=== PATIENT | female | born 1990 | race Caucasian/White ===

== ENCOUNTER 2018-08-25 21:40 | Emergency (ER) | payer BC, OTHER ==
[2018-08-25] MEDS ORDERED: MORPHINE SULFATE INJ 10 MG/ML VIAL IV ONE ×2 (22:18→23:30)
[2018-08-25] MEDS ORDERED: MORPHINE SULFATE INJ 10 MG/ML VIAL IM ONE (22:31)
[2018-08-25] MEDS ORDERED: ONDANSETRON ODT 8 MG TAB SL ONE (22:59)
[2018-08-25] MEDS ORDERED: SODIUM CHLORIDE 0.9% 1000ML 1,000 ML IVS ONE (23:49)
--- NOTE | 2018-08-26 00:09 | ED.PDOC ---
History of Present Illness - General Chief Complaint: Problem Stated Complaint: vaginal bleeding, abd pain Time Seen by Provider: 08/25/18 21:44 Source: patient Exam Limitations: no limitations - History of Present Illness Initial Comments: the patient is a 28-year-old female presenting to the emergency room secondary to vaginal bleeding. The patient started having some light bleeding yesterday but the bleeding became heavy later this afternoon. She started having more severe abdominal cramping as well. The patient had not actually had a period for the last 2-3 months. 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 She has not had a period since that time. She is not hypotensive. She is alert and oriented. She is obviously having some significant pain. estimated blood loss prior to arrival is probably 100 cc. Timing/Duration: unsure Severity: severe Improving Factors: nothing Worsening Factors: nothing Associated Symptoms: denies symptoms Allergies/Adverse Reactions: Allergies Ciprofloxacin [From Cipro] Allergy (Verified 12/23/14 19:04) Home Medications: Ambulatory Orders Albuterol Inhaler 12/23/14 Bentyl 12/23/14 Bromocriptine Mesylate 12/23/14 Nitrofurantoin Monohydrate Mac [Macrobid] 100 mg PO BID #10 cap 12/23/14 Ondansetron [Zofran Odt] 4 mg PO Q6H #20 tab 12/23/14 Sertraline HCl 12/23/14 Tramadol HCl [Ultram] 50 mg PO Q6HR #20 tab 12/23/14 Review of Systems - Review of Systems Constitutional: States: no symptoms reported EENTM: States: no symptoms reported Respiratory: States: no symptoms reported Cardiology: States: no symptoms reported Gastrointestinal/Abdominal: States: abdominal pain Genitourinary: States: see HPI Musculoskeletal: States: no symptoms reported Skin: States: no symptoms reported Neurological: States: no symptoms reported Endocrine: States: no symptoms reported All other Systems: No Change from Baseline Past Medical History (General) - Patient Medical History Hx Seizures: No Hx Stroke: No Hx Dementia: No Hx Asthma: No Hx of COPD: No Hx Cardiac Disorders: No Hx Congestive Heart Failure: No Hx Pacemaker: No Hx Hypertension: No Hx Thyroid Disease: No Hx Diabetes: No Hx Gastroesophageal Reflux: No Hx Renal Disease: No Hx Cancer: No Hx of HIV: No Hx Hepatitis C: No Hx MRSA: No - Vaccination History Hx Tetanus, Diphtheria Vaccination: No Hx Influenza Vaccination: No Hx Pneumococcal Vaccination: No - Social History Hx Tobacco Use: No Hx Alcohol Use: Yes - ossacionally Hx Substance Use: No Hx Substance Use Treatment: No Hx Depression: Yes Hx Physical Abuse: No Hx Emotional Abuse: No Hx Suspected Abuse: No - Female History Hx Last Menstrual Period: 11/03/14 Patient : No Family Medical History - Family History Mother Hx Family Asthma: Yes Physical Exam - Physical Exam General Appearance: Alert, Anxious, Other - obviously hurting Eye Exam: bilateral normal Ears, Nose, Throat: hearing grossly normal, normal ENT inspection Neck: full range of motion, supple Respiratory: lungs clear, normal breath sounds, no respiratory distress, no accessory muscle use Cardiovascular/Chest: normal peripheral pulses, regular rate, rhythm, no edema Peripheral Pulses: radial,right: 2+, radial,left: 2+, dorsalis pedis,right: 2+, dorsalis pedis,left: 2+ Gastrointestinal/Abdominal: soft, other - lower abdominal pain. A little worse with palpation. Rectal Exam: other - pelvic exam shows removal of large clots. No obvious arterial bleed. No obvious laceration. 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 Vital signs are stable. Estimated blood loss since her arrival here is approximately 200 cc. Hemoglobin and hematocrit is reassuring. She has received 2 small doses of morphine for pain control. Low resolution bedside ultrasound performed here by me shows no evidence of any definitive intrauterine . Given the recent tubal ligation an ectopic is suspected. 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 She has received a liter of IV fluids. - Results/Orders Results/Orders: Laboratory Tests 08/25/18 08/25/18 08/25/18 22:17 22:18 22:18 WBC 11.0 H RBC 4.66 Hgb 12.2 Hct 37.3 MCV 80.1 L MCH 26.3 L MCHC 32.8 L RDW 15.2 H Plt Count 257 MPV 7.7 Absolute Neuts (auto) 7.20 H Absolute Lymphs (auto) 2.90 Absolute Monos (auto) 0.70 Absolute Eos (auto) 0.20 Absolute Basos (auto) 0.10 Neutrophils % 65.2 Lymphocytes % 26.2 Monocytes % 6.4 Eosinophils % 1.7 Basophils % 0.5 PT 10.3 INR 1.03 PTT (SP) 25.9 Sodium 137 Potassium 3.7 Chloride 106 Carbon Dioxide 21 Anion Gap 13.7 BUN 10 Creatinine 0.51 L BUN/Creatinine Ratio 19.6 Random Glucose 105 Serum Osmolality 273.2 L Calcium 8.7 Total Bilirubin 0.3 AST 12 ALT 12 Alkaline Phosphatase 53 Serum Total Protein 6.8 Albumin 3.6 Globulin 3.2 Albumin/Globulin Ratio 1.1 Serum HCG, Qual 08/25/18 23:26 WBC RBC Hgb Hct MCV MCH MCHC RDW Plt Count MPV Absolute Neuts (auto) Absolute Lymphs (auto) Absolute Monos (auto) Absolute Eos (auto) Absolute Basos (auto) Neutrophils % Lymphocytes % Monocytes % Eosinophils % Basophils % PT INR PTT (SP) Sodium Potassium Chloride Carbon Dioxide Anion Gap BUN Creatinine BUN/Creatinine Ratio Random Glucose Serum Osmolality Calcium Total Bilirubin AST ALT Alkaline Phosphatase Serum Total Protein Albumin Globulin Albumin/Globulin Ratio Serum HCG, Qual Positive Departure - Departure Clinical Impression: Vaginal bleeding Ectopic Qualifiers: Location of ectopic : unspecified location Intrauterine status: without intrauterine Qualified Code(s): O00.90 - Unspecified ectopic without intrauterine Disposition: Transfer to Hospital Condition: Serious Departure Forms: ED Discharge - Pt. Copy, Patient Portal Self Enrollment Referrals: GALA CALHOUN [Primary Care Provider] - 1-2 Weeks Home Medications: Ambulatory Orders Albuterol Inhaler 12/23/14 Bentyl 12/23/14 Bromocriptine Mesylate 12/23/14 Nitrofurantoin Monohydrate Mac [Macrobid] 100 mg PO BID #10 cap 12/23/14 Ondansetron [Zofran Odt] 4 mg PO Q6H #20 tab 12/23/14 Sertraline HCl 12/23/14 Tramadol HCl [Ultram] 50 mg PO Q6HR #20 tab 12/23/14 Transfer to Outside Facility - Transfer Information Accepting Provider:: dr vital [facility] Reason for Transfer: specialized care not available
[2018-08-26 03:17] VITALS: BP 164/82; TEMP 97.9; O2SAT 92
== END 2018-08-26 01:09 | disposition short-term general hospital (02) ==
LOC: ER 21:40
DX: O00.90 Unspecified ectopic pregnancy without intrauterine pregnancy (principal); F32.9 Major depressive disorder, single episode, unspecified; Z98.51 Tubal ligation status; Z79.899 Other long term (current) drug therapy; Z88.1 Allergy status to other antibiotic agents
CPT/HCPCS: 36415; 80053; 84702; 84703; 85025; 85610; 85730; J2270; J7030